=== PATIENT | male | born 1950 | race Caucasian/White ===

== ENCOUNTER → 2022-05-04 09:38 | Outpatient (CLI) | payer MEDICARE, OTHER, SELFPAY ==
[2022-05-04 19:40] LABS: Cholesterol 184 mg/dL (140-199); Glucose 100 mg/dL (80-110); HDL Cholesterol 50 mg/dL (40-60); LDL Cholesterol Calculated 113 mg/dL (<100); Triglycerides 103 mg/dL (35-150)
[2022-05-04 20:10] LABS: Prostate Specific Antigen Scrn 3.04 ng/mL (0.1-4.0)
[2022-05-06 19:26] LABS: Hep C Virus Ab w/Reflex Quant NEGATIVE s/c (NEGATIVE)
== END ==
PROVIDERS: PCP Family Medicine; Visit Provider Family Medicine
DX: E78.2 Mixed hyperlipidemia (principal); Z12.5 Encounter for screening for malignant neoplasm of prostate; Z11.59 Encounter for screening for other viral diseases; Z12.11 Encounter for screening for malignant neoplasm of colon; Z13.1 Encounter for screening for diabetes mellitus; Z13.220 Encounter for screening for lipoid disorders; Z71.85 Encounter for immunization safety counseling
CPT/HCPCS: 80061; 82947; 86803; G0103

== ENCOUNTER → 2024-04-16 11:39 | Outpatient (CLI) | payer MEDICARE, OTHER, SELFPAY ==
--- NOTE | 2024-04-16 11:43 | DI.RAD.S_ITS ---
PROCEDURE: XR FOOT RT MIN 3V INDICATIONS: preop for MTP surgery TECHNIQUE: 3 views of the foot were acquired. COMPARISON: [facility] ([facility]), CR, XR FOOT LT MIN 3V, 06/08/2023, 15:49. FINDINGS: Bones: No fractures or dislocations. Marked 1st MTP and moderate 1st IP joint space narrowing and juxta-articular osteophytosis. No suspicious bony lesions. Soft tissues: No tibiotalar joint effusion. Achilles tendon appears normal. IMPRESSION: 1. No acute bony abnormality. 2. 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 Dictated by: Parisa Khalil M.D. on 04/16/2024 at 13:36 Approved by: Parisa Khalil M.D. on 04/16/2024 at 13:37
--- NOTE | 2024-04-16 11:43 | DI.RAD.S_ITS ---
PROCEDURE: XR FOOT LT MIN 3V INDICATIONS: preop for MTP surgery TECHNIQUE: 3 views of the foot were acquired. COMPARISON: [facility], CR, XR FOOT 3+ VIEWS LEFT, 08/17/2023, 12:29. [facility], CR, XR FOOT RT MIN 3V, 04/16/2024, 11:41. [facility] ([place]), CR, XR FOOT LT MIN 3V, 06/08/2023, 15:49. FINDINGS: Bones: Dorsal surgical plate and screw fixation of the 1st MTP joint demonstrates an apparent lucency through 1 of the screws on the oblique view which is not appreciated on the AP or lateral view. Partial ankylosis of the 1st MTP joint. Remainder of the IP joints demonstrate mild degenerative changes. No fractures or dislocations. No suspicious bony lesions. Soft tissues: No tibiotalar joint effusion. Achilles tendon appears normal. IMPRESSION: Dorsal surgical plate and screw fixation of the 1st MTP joint demonstrates an apparent lucency through 1 of the screws on oblique view which is not appreciated on the AP or lateral view. Findings may be secondary to artifact. Attention on follow-up imaging. Dictated by: Parisa Khalil M.D. on 04/16/2024 at 13:32 Approved by: Parisa Khalil M.D. on 04/16/2024 at 13:36
== END ==
PROVIDERS: PCP Family Medicine; Referring Provider Family Medicine; Visit Provider Family Medicine
DX: M19.071 Primary osteoarthritis, right ankle and foot (principal); M19.072 Primary osteoarthritis, left ankle and foot
CPT/HCPCS: 73630

== ENCOUNTER → 2024-05-23 10:29 | Outpatient (CLI) | payer MEDICARE, OTHER, SELFPAY ==
[2024-05-23 21:11] LABS: Add Manual Diff / Slide Review NO; Basophils Absolute Auto 0 /uL (0-100); Basophils Percent Auto 0.7 % (0-2); Eosinophils Absolute Auto 100 /uL (0-450); Eosinophils Percent Auto 1.9 % (2-4); Hematocrit 41.8 % (41-53); Hemoglobin 13.9 g/dL (13.5-17.5); Lymphocytes Absolute Auto 1100 /uL (1100-4500); Lymphocytes Percent Auto 30.3 % (25-40); Mean Corpuscular HGB Conc 33.3 % (30-36); Mean Corpuscular Volume 87.1 fL (80-100); Monocytes Absolute Auto 300 /uL (0-900); Monocytes Percent Auto 8.1 % (3-14); Neutrophils Absolute Auto 2100 /uL (1500-7000); Platelet Count 155 X10^3/uL (150-400); Red Cell Distribution Width 15.1 % (11.6-14.8); White Blood Cell Count 3.5 X10^3/uL (4.5-11.0)
[2024-05-23 22:31] LABS: BUN Creatinine Ratio 33.8 (6-22); Blood Urea Nitrogen 24 mg/dL (9-20); Calcium 8.9 mg/dL (8.4-10.2); Carbon Dioxide 27 mmol/L (22-32); Chloride 108 mmol/L (98-107); Cholesterol 179 mg/dL (140-199); Estimated Glomerular Filt Rate > 60 mL/min (>60); Glucose 101 mg/dL (80-110); HDL Cholesterol 46 mg/dL (40-60); HEMOLYSIS < 15 (0-50); LDL Cholesterol Calculated 107 mg/dL (<100); Potassium 4.4 mmol/L (3.4-5.1); Sodium 140 mmol/L (137-145); Triglycerides 129 mg/dL (35-150)
[2024-05-23 23:01] LABS: Prostate Specific Antigen 3.19 ng/mL (0.10-4.00)
[2024-05-31 09:10] LABS: PSA Free % 18.1 % (.); PSA, Total 2.7 ng/mL (0.0-4.0)
== END ==
PROVIDERS: PCP Family Medicine; Visit Provider Family Medicine
DX: D72.819 Decreased white blood cell count, unspecified (principal); E78.2 Mixed hyperlipidemia; N40.1 Benign prostatic hyperplasia with lower urinary tract symptoms; N13.8 Other obstructive and reflux uropathy; K21.9 Gastro-esophageal reflux disease without esophagitis; R60.0 Localized edema
CPT/HCPCS: 80048; 80061; 84153; 84154; 85025

== ENCOUNTER → 2024-07-25 10:26 | Outpatient (CLI) | payer MEDICARE, OTHER, SELFPAY ==
[2024-07-25 20:04] LABS: Prostate Specific Antigen Scrn 3.65 ng/mL (0.1-4.0)
[2024-07-26 00:13] LABS: Appearance Urine UA CLEAR; Bilirubin Urine UA NEGATIVE (NEGATIVE); Color Urine UA YELLOW; Glucose Urine UA NEGATIVE (Negative); Ketones Urine UA NEGATIVE (NEGATIVE); Leukocyte Esterase Urine UA NEGATIVE (NEGATIVE); Nitrite Urine UA NEGATIVE (Negative); Occult Blood Urine UA NEGATIVE (Negative); Protein Urine UA NEGATIVE (Negative); Urobilinogen Urine UA 0.2 E.U./dL (0.2)
== END ==
PROVIDERS: PCP Family Medicine; Visit Provider Family Medicine
DX: Z12.5 Encounter for screening for malignant neoplasm of prostate (principal); R31.9 Hematuria, unspecified
CPT/HCPCS: 81003; G0103

== ENCOUNTER → 2024-08-02 13:01 | Outpatient (CLI) | payer MEDICARE, OTHER, SELFPAY ==
[2024-08-02 19:56] LABS: Appearance Urine UA CLEAR; Bilirubin Urine UA NEGATIVE (NEGATIVE); Color Urine UA YELLOW; Glucose Urine UA NEGATIVE (Negative); Ketones Urine UA NEGATIVE (NEGATIVE); Leukocyte Esterase Urine UA NEGATIVE (NEGATIVE); Nitrite Urine UA NEGATIVE (Negative); Occult Blood Urine UA TRACE-INTACT (Negative); Protein Urine UA NEGATIVE (Negative); Specific Gravity Urine UA 1.025 (1.000-1.035); Urobilinogen Urine UA 0.2 E.U./dL (0.2)
[2024-08-02 20:09] LABS: Urine Volume 10mL (spun)
[2024-08-02 20:13] LABS: Bacteria Urine Few (2-10); RBC Urine 0-1/HPF (0-5/HPF); Squamous Epithelial Cell Urine 0-1 /HPF (0-5/HPF); WBC Urine None Seen (0-5/HPF)
[2024-08-02 20:14] LABS: Culture Indicated Urine Cult Not Indicated; Mucus Urine 2+ (Negative)
== END ==
PROVIDERS: PCP Family Medicine; Visit Provider Family Medicine
DX: R31.0 Gross hematuria (principal)
CPT/HCPCS: 81001

== ENCOUNTER → 2025-05-22 12:30 | Outpatient (CLI) | payer MEDICARE, OTHER, SELFPAY | PROVIDERS: PCP Family Medicine; Visit Provider Family Medicine | DX: A09 Infectious gastroenteritis and colitis, unspecified (principal) | CPT/HCPCS: 87177 ==

== ENCOUNTER → 2025-05-27 11:00 | Outpatient (CLI) | payer MEDICARE, OTHER, SELFPAY | PROVIDERS: PCP Family Medicine; Visit Provider Family Medicine | DX: A09 Infectious gastroenteritis and colitis, unspecified (principal) | CPT/HCPCS: 87045 ==

== ENCOUNTER → 2025-05-28 10:00 | Outpatient (CLI) | payer MEDICARE, OTHER, SELFPAY | PROVIDERS: PCP Family Medicine; Visit Provider Family Medicine | DX: A09 Infectious gastroenteritis and colitis, unspecified (principal) | CPT/HCPCS: 87177 ==